=== PATIENT | female | born 1965 | race Caucasian/White ===

== ENCOUNTER 2018-03-02 12:17 | Emergency (ER) | payer SELFPAY ==
[2018-03-02 12:44] VITALS: BP 119/75; PULSE 78; RESP 16; TEMP 98; O2SAT 99
--- NOTE | 2018-03-02 13:26 | ED PDOC ---
Upper Extremity Pain/Injury Time Seen by Provider: 03/02/18 12:48 Chief Complaint (Nursing): Upper Extremity Problem/Injury Chief Complaint (Provider): left neck and arm pain History Per: Patient, Family (Patient's son at bedside is translating for patient in greenlandic) History/Exam Limitations: no limitations Onset/Duration Of Symptoms: Days (x yesterday) Current Symptoms Are (Timing): Still Present Additional Complaint(s): 52-year-old right hand dominant female presents to emergency department with left-sided neck pain radiating to left arm that started yesterday. Pt denies falling. Pt states she did not take any medication for pain. No chest pain, no shortness of breath, no chills, no headache. Patient states she has had pain for several months to neck and shoulder but it worsens as of yesterday. PMD: none Past Medical History Reviewed: Historical Data, Nursing Documentation, Vital Signs Vital Signs: Last Vital Signs Temp 98.0 F 03/02/18 12:40 Pulse 78 03/02/18 12:40 Resp 16 03/02/18 12:40 BP 119/75 03/02/18 12:40 Pulse Ox 99 03/02/18 12:40 - Medical History PMH: Diabetes, HTN, Hypercholesterolemia - Surgical History Surgical History: No Surg Hx - Family History Family History: States: No Known Family Hx, Unknown Family Hx - Living Arrangements Living Arrangements: With Family - Social History Current smoker - smoking cessation education provided: No Alcohol: None Drugs: Denies - Home Medications Home Medications: Ambulatory Orders Medication Instructions Recorded Fluticasone Nasal [Flonase] 0.05 mg NS DAILY #1 spr 11/15/15 Loratadine [Claritin] 10 mg PO DAILY #20 tab 11/15/15 Metformin HCl [Glucophage] 1,000 mg PO BID 11/15/15 Cyclobenzaprine [Cyclobenzaprine 10 mg PO TID PRN #20 tab 03/02/18 HCl] Naproxen [Naprosyn] 500 mg PO BID #20 tab 03/02/18 traMADol [Ultram] 50 mg PO Q6H PRN #15 tab 03/02/18 - Allergies Allergies/Adverse Reactions: Allergies Allergy/AdvReac Type Severity Reaction Status Date / Time No Known Allergies Allergy Verified 03/02/18 12:40 Review of Systems ROS Statement: Except As Marked, All Systems Reviewed And Found Negative Constitutional: Negative for: Fever, Chills Cardiovascular: Negative for: Chest Pain Respiratory: Negative for: Shortness of Breath Musculoskeletal: Positive for: Neck Pain (left), Shoulder Pain (left), Arm Pain (left) Neurological: Negative for: Headache Physical Exam - Reviewed Nursing Documentation Reviewed: Yes Vital Signs Reviewed: Yes - Physical Exam Appears: Positive for: Well, Non-toxic, No Acute Distress Skin: Positive for: Normal Color. 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) Neurologic/Psych: Positive for: Alert, Oriented - ECG O2 Sat by Pulse Oximetry: 99 (RA) Pulse Ox Interpretation: Normal - Other Rad X-ray cervical spine X-Ray: Interpreted by Me, Viewed By Me X-Ray Interpretation: no fx, no dis X-ray left shoulder X-Ray: Interpreted by Me, Viewed By Me X-Ray Interpretation: no fx, no dis, calcific tendinitis Medical Decision Making Medical Decision Making: Impression(s): 52-year-old female with left neck and arm pain Plan: - Cervical Spine AP and Lateral X-Ray - Left Shoulder X-Ray - Toradol IM - Tylenol - Flexeril Patient reports improvement to pain after meds given. She is aware of x-ray results, all questions answered. Sling was applied to right arm. Prescriptions given for Flexeril, Naprosyn and tramadol. 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 Scribe Attestation: Documented by Maximilian Ayala, acting as a scribe for Allison Caraballo PA-C. Provider Scribe Attestation: All medical record entries made by the Scribe were at my direction and personally dictated by me. I have reviewed the chart and agree that the record accurately reflects my personal performance of the history, physical exam, medical decision making, and the department course for this patient. I have also personally directed, reviewed, and agree with the discharge instructions and disposition. Procedures - Splinting Location: right arm Pre-Made Type: sling Pre-Proc Neuro Vasc Exam: normal Post-Proc Neuro Vasc Exam: normal Disposition - Clinical Impression Clinical Impression: Calcific tendinitis of left shoulder - Patient ED Disposition Is Patient to be Admitted: No Counseled Patient/Family Regarding: Studies Performed, Diagnosis, Need For Followup, Rx Given - Disposition Referrals: Pascual Bautista III, MD [Staff Provider] - [facility] [Outside] Disposition: Routine/Home Disposition Time: 14:59 Condition: STABLE Additional Instructions: Take prescription meds as directed. Rest and ice affected area. Follow-up with clinic or orthopedist for any persistent symptoms. Prescriptions: Cyclobenzaprine [Cyclobenzaprine HCl] 10 mg PO TID PRN #20 tab PRN Reason: Muscle Spasm Naproxen [Naprosyn] 500 mg PO BID #20 tab traMADol [Ultram] 50 mg PO Q6H PRN #15 tab PRN Reason: Pain, Moderate (4-7) Instructions: Calcific Tendonitis of the Shoulder (DC) Forms: [employer] (Lao) Print Language: KITTITIAN
--- NOTE | 2018-03-02 14:23 | RAD ---
Date of service: 03/02/2018 PROCEDURE: Radiographs of the Left Shoulder HISTORY: pain COMPARISON: No prior. FINDINGS: BONES: No acute fracture. JOINTS: Mild acromioclavicular joint degenerative changes. Supraspinatus calcific tendonitis. SOFT TISSUES: Normal. OTHER FINDINGS: None. IMPRESSION: No demonstrated fracture or dislocation. Mild acromioclavicular joint degenerative changes. Supraspinatus calcific tendonitis.
--- NOTE | 2018-03-02 14:34 | RAD ---
Date of service: 03/02/2018 PROCEDURE: Cervical Spine Radiographs. HISTORY: Pain. COMPARISON: None. FINDINGS: BONES: Alignment maintained. No fracture. Dens Intact. DISC SPACES: Normal. SOFT TISSUES: Normal. No prevertebral soft tissue swelling. OTHER FINDINGS: None. IMPRESSION: Normal cervical spine radiographs
== END 2018-03-02 15:10 | disposition home or self-care (01) ==
LOC: H.ER 12:17
DX: M75.32 Calcific tendinitis of left shoulder (principal); E11.9 Type 2 diabetes mellitus without complications; E78.00 Pure hypercholesterolemia, unspecified; I10 Essential (primary) hypertension
CPT/HCPCS: 72040; 73030; 81025; 96372; 99284; J1885